=== PATIENT | male | born 1945 | race Caucasian/White ===

== ENCOUNTER 2023-01-24 12:32 | Inpatient (IN) | payer MEDICARE ==
[~2023-01-24] VITALS: Ht 170.2 cm; Wt 97.8 kg
[2023-01-24] MEDS ORDERED: LACTATED RINGERS 1000ML 1,000 ML IV ONE (13:00)
[2023-01-24 14:42] LABS: BASOPHILS % (AUTO) 0.3 % (0.0-5.0); EOSINOPHILS % (AUTO) 0.8 % (0.0-8.0); HEMATOCRIT 44.1 % (42-54); LYMPHOCYTES % (AUTO) 18.7 % (21.0-51.0); MEAN CORPUSCULAR HGB CONC 33.6 g/dL (32.0-36.0); MEAN CORPUSCULAR VOLUME 89.3 fL (79-99); MONOCYTES % (AUTO) 9.3 % (3.0-13.0); NEUTROPHILS % (AUTO) 70.6 % (40.0-77.0); PLATELET COUNT (AUTO) 241 K/uL (130-400); RED BLOOD CELL COUNT(AUTO) 4.94 MIL/uL (4.50-6.20); RED CELL DISTRIBUTION WIDTH 12.2 % (11.0-15.5); WHITE BLOOD COUNT (AUTO) 7.6 K/uL (4.8-10.8)
[2023-01-24 14:50] LABS: CREATININE 1.3 mg/dL (0.5-1.5); POTASSIUM 3.9 mmol/L (3.5-5.1)
[2023-01-24 14:54] LABS: ALBUMIN 3.9 g/dL (3.5-5.0); MAGNESIUM 1.8 mg/dL (1.80-2.40); TOTAL PROTEIN, SERUM 7.4 g/dL (6.0-8.3)
[2023-01-24 15:14] LABS: B-TYPE NATRIURETIC PEPTIDE 161 pg/mL (0-100)
[2023-01-24] MEDS ORDERED: LACTATED RINGERS 1000ML 1,000 ML IV SCH (17:00)
[2023-01-24 17:26] LABS: INR 0.98 (0.85-1.15); PROTHROMBIN TIME 11.4 SEC (9.6-11.6)
[2023-01-24 17:28] LABS: PARTIAL THROMBOPLASTIN TIME 27.7 SEC (26.3-35.5)
[2023-01-24] MEDS ORDERED: MAGNESIUM 2GM PREMIX 50ML 50 ML IV SCH (17:30)
[2023-01-24] MEDS ORDERED: POTASSIUM CHLORIDE 10MEQ SR TAB PO ONE (17:30)
[2023-01-24] MEDS: NIFEDIPINE ER 30 MG TAB PO SCH (20:57)
[2023-01-24] MEDS ORDERED: RIVAROXABAN 20 MG TABLET PO SCH (21:00)
[2023-01-24] MEDS ORDERED: METOPROLOL TARTRATE 25 MG TAB PO SCH (21:00)
[2023-01-24] MEDS ORDERED: PHARMACY COMMUNICATION MISC PRN (21:00)
[2023-01-24] MEDS ORDERED: THIAMINE HCL 100 MG, FOLIC ACID 1 MG, M.V.I. IV [ADULT] 10 ML in 0.9%NACL 1000ML 1,000 ML IV SCH (21:00)
[2023-01-24] MEDS ORDERED: LORAZEPAM 2 MG/ML 1 ML VIAL IVP PRN (21:00)
[2023-01-24] MEDS ORDERED: CHLORDIAZEPOXIDE HCL 25 MG CAP PO PRN (21:00)
[2023-01-24 22:50] LABS: APPEARANCE,URINE CLEAR (CLEAR); BILIRUBIN,URINE NEGATIVE (NEGATIVE); COLOR,URINE LIGHT-YELLOW (YELLOW); GLUCOSE, URINE (UA) NEGATIVE (NEGATIVE); KETONES,URINE 10 mg/dL (NEGATIVE); LEUKOCYTE ESTERASE ,URINE NEGATIVE Leu/uL (NEGATIVE); NITRATE,URINE NEGATIVE (NEGATIVE); PH,URINE 5.5 (5.0-8.0); PROTEIN,URINE NEGATIVE (NEGATIVE); UROBILINOGEN,URINE 0.2 mg/dL (0.2-1.0)
[2023-01-24 22:54] LABS: OCCULT BLOOD,URINE NEGATIVE (NEGATIVE)
[2023-01-24 22:56] LABS: AMPHET/METH SCREEN,URINE NEGATIVE (NEGATIVE); BARBITURATE SCREEN, URINE NEGATIVE (NEGATIVE); BENZODIAZEPINES SCREEN,URINE NEGATIVE (NEGATIVE); CANNABINOID SCREEN,URINE NEGATIVE (NEGATIVE); COCAINE SCREEN,URINE NEGATIVE (NEGATIVE); OPIATE SCREEN,URINE NEGATIVE (NEGATIVE); PHENCYCLIDINE SCREEN,URINE NEGATIVE (NEGATIVE)
[2023-01-25] VITALS (7 sets, daily range): BP systolic 122–167; BP diastolic 70–94; PULSE 60–69; RESP 14–22; O2SAT 99
[2023-01-25 07:48] LABS: BASOPHILS % (AUTO) 0.2 % (0.0-5.0); HEMATOCRIT 43.2 % (42-54); MEAN CORPUSCULAR HEMOGLOBIN 30.2 pg (27.0-33.0); MEAN CORPUSCULAR HGB CONC 33.6 g/dL (32.0-36.0); MONOCYTES % (AUTO) 8.8 % (3.0-13.0); NEUTROPHILS % (AUTO) 65.7 % (40.0-77.0); PLATELET COUNT (AUTO) 207 K/uL (130-400); RED CELL DISTRIBUTION WIDTH 12.1 % (11.0-15.5); WHITE BLOOD COUNT (AUTO) 5.8 K/uL (4.8-10.8)
[2023-01-25] MEDS: PANTOPRAZOLE 40 MG TAB DR PO SCH (08:49)
[2023-01-25] MEDS: METOPROLOL TARTRATE 25 MG TAB PO SCH ×2 (08:49→21:26)
[2023-01-25 09:00] LABS: ALBUMIN 3.8 g/dL (3.5-5.0); MAGNESIUM 1.8 mg/dL (1.80-2.40); POTASSIUM 4.6 mmol/L (3.5-5.1); TOTAL PROTEIN, SERUM 7.2 g/dL (6.0-8.3)
[2023-01-25] MEDS ORDERED: AEC81 PO (11:07)
[2023-01-25] MEDS ORDERED: SILD20TA14 PO (11:12)
[2023-01-25] MEDS ORDERED: RIVAROXABAN 20 MG TABLET PO SCH ×2 (11:30→17:00)
[2023-01-25] MEDS: NIFEDIPINE ER 30 MG TAB PO SCH (21:26)
[2023-01-26 04:00] VITALS: BP_SYST 117; BP_SYST 146; BP_DIAS 64; BP_DIAS 81; PULSE 51; PULSE 61; RESP 18
[2023-01-26 07:11] LABS: BASOPHILS % (AUTO) 0.5 % (0.0-5.0); EOSINOPHILS % (AUTO) 1.3 % (0.0-8.0); HEMATOCRIT 45.4 % (42-54); LYMPHOCYTES % (AUTO) 28.6 % (21.0-51.0); MEAN CORPUSCULAR HEMOGLOBIN 30.3 pg (27.0-33.0); MEAN CORPUSCULAR HGB CONC 34.1 g/dL (32.0-36.0); MEAN CORPUSCULAR VOLUME 88.7 fL (79-99); MONOCYTES % (AUTO) 9.4 % (3.0-13.0); PLATELET COUNT (AUTO) 217 K/uL (130-400); RED BLOOD CELL COUNT(AUTO) 5.12 MIL/uL (4.50-6.20); RED CELL DISTRIBUTION WIDTH 12.1 % (11.0-15.5); WHITE BLOOD COUNT (AUTO) 6.1 K/uL (4.8-10.8)
[2023-01-26 07:19] LABS: ALBUMIN 3.7 g/dL (3.5-5.0); CREATININE 0.9 mg/dL (0.5-1.5); POTASSIUM 4.3 mmol/L (3.5-5.1); TOTAL PROTEIN, SERUM 7.2 g/dL (6.0-8.3)
[2023-01-26] MEDS: METOPROLOL TARTRATE 25 MG TAB PO SCH (07:53)
[2023-01-26] MEDS: PANTOPRAZOLE 40 MG TAB DR PO SCH (07:53)
[2023-01-26 07:54] VITALS: O2SAT 99
[2023-01-26 08:30] VITALS: BP 143/88; PULSE 56; RESP 18
[2023-01-26 12:39] VITALS: BP 142/80; PULSE 62; RESP 18
[2023-01-26] MEDS ORDERED: NIFE-40 PO (14:23)
[2023-01-26] MEDS ORDERED: METO25 PO (14:23)
[2023-01-26] MEDS ORDERED: RIVA20TA PO (14:23)
== END 2023-01-26 15:35 | disposition home or self-care (01) | DRG 309 ==
LOC: EDH 12:32 → EDHIP 17:08 → 2DH 01-25 08:11
PROVIDERS: ADMIT Internal Medicine; ATTEND Internal Medicine
DX: I48.0 Paroxysmal atrial fibrillation (principal); N17.9 Acute kidney failure, unspecified; T67.5XXA Heat exhaustion, unspecified, initial encounter; X30.XXXA Exposure to excessive natural heat, initial encounter; I16.0 Hypertensive urgency; E86.0 Dehydration; Z87.442 Personal history of urinary calculi; E78.5 Hyperlipidemia, unspecified; F10.10 Alcohol abuse, uncomplicated; I10 Essential (primary) hypertension; Z85.46 Personal history of malignant neoplasm of prostate; Z85.828 Personal history of other malignant neoplasm of skin; Z90.79 Acquired absence of other genital organ(s)
CPT/HCPCS: 36415; 70450; 71045; 80053; 80305; 81003; 82550; 83735; 83880; 84443; 84484; 85025; 85610; 85730; 93005; 93306; G0378; J3411; J3475; J3490; J7030; J7120